=== PATIENT | male | born 1975 | race Caucasian/White ===

== ENCOUNTER 2016-10-19 16:49 | Emergency (ER) | payer SELFPAY ==
[2016-10-19 17:05] VITALS: BP 123/83; PULSE 97; RESP 18; TEMP 97.9
--- NOTE | 2016-10-19 17:29 | ED ---
General Adult HPI - General Chief complaint: Psychiatric Symptoms Stated complaint: SUICIDAL Time Seen by Provider: 10/19/16 17:17 Source: patient, RN notes reviewed Mode of arrival: ambulatory - History of Present Illness Initial comments: Patient 41-year-old male who presents emergency room today with chief complaint of suicidal ideation. Patient does admit that he is currently homeless. States that his ex- threw him out. Patient does admit that he's had increased thoughts of hurting himself. He states that if he had a gun he would use it. Patient states he also had homicidal thoughts towards his ex- states he would not act on them. Patient denies any other complaints or symptoms currently. States he has been hospitalized in the past. States currently not seen any therapist or counselor at this time. States not on any medications. Patient denies any recent fever, chills, shortness of breath, chest pain, back pain, abdominal pain, nausea or vomiting, numbness or tingling, dysuria or hematuria, constipation or diarrhea, headaches or visual changes, or any other complaints. - Related Data Home Medications Medication Instructions Recorded Confirmed No Known Home Medications [No 10/19/16 10/19/16 Known Home Medications] Allergies Allergy/AdvReac Type Severity Reaction Status Date / Time Penicillins Allergy Rash/Hives Verified 10/19/16 18:24 Review of Systems ROS Statement: Those systems with pertinent positive or pertinent negative responses have been documented in the HPI. ROS Other: All systems not noted in ROS Statement are negative. Past Medical History Past Medical History: No Reported History History of Any Multi-Drug Resistant Organisms: None Reported Past Surgical History: No Surgical Hx Reported Past Psychological History: Anxiety, Depression Smoking Status: Current every day smoker Past Alcohol Use History: Daily Past Drug Use History: Marijuana General Exam - General Exam Comments Initial Comments: General: The patient is awake and alert, in no distress, and does not appear acutely ill. Eye: Pupils are equal, round and reactive to light, extra-ocular movements are intact. No nystagmus. There is normal conjunctiva bilaterally. No signs of icterus. Ears, nose, mouth and throat: There are moist mucous membranes and no oral lesions. Neck: The neck is supple, there is no tenderness or JVD. Cardiovascular: There is a regular rate and rhythm. No murmur, rub or gallop is appreciated. Respiratory: Lungs are clear to auscultation, respirations are non-labored, breath sounds are equal. No wheezes, stridor, rales, or rhonchi. Musculoskeletal: Normal ROM, no tenderness. Strength 5/5. Sensation intact. Pulses equal bilaterally 2+. Neurological: A&O x 3. CN II-XII intact, There are no obvious motor or sensory deficits. Coordination appears grossly intact. Speech is normal. Skin: Skin is warm and dry and no rashes or lesions are noted. Psychiatric: Cooperative. Depressed affect Course Vital Signs 10/19/16 17:00 Temperature 97.9 F Pulse Rate 97 Respiratory 18 Rate Blood Pressure 123/83 O2 Sat by Pulse 95 Oximetry Medical Decision Making - Medical Decision Making Patient has been seen by mental health here in the emergency room and recommended patient may be discharged home. Patient denies any suicidal thoughts or plans. States she has no intention of hurting herself or others. Patient will be discharged home with referral for outpatient treatment. Patient advised return for any increase or worsening of symptoms or any other concerns. Disposition Clinical Impression: Depression Disposition: HOME SELF-CARE Condition: Good Instructions: Depression (ED) Additional Instructions: Please follow-up with community mental health as discussed. Please return to emergency room if the symptoms increase or worsen or for any other concerns. Referrals: None,Stated [Primary Care Provider] - 1-2 days Time of Disposition: 20:24
== END 2016-10-19 21:05 | disposition home or self-care (01) ==
LOC: EC 16:49
DX: F32.9 Major depressive disorder, single episode, unspecified (principal); R45.851 Suicidal ideations; R45.850 Homicidal ideations; F17.200 Nicotine dependence, unspecified, uncomplicated; Z88.0 Allergy status to penicillin
CPT/HCPCS: 80306; 82075; 99284